=== PATIENT | male | born 1985 | race Native Hawaiian/Other Pacific Islander ===

== ENCOUNTER 2018-10-25 16:44 | Emergency (ER) | payer OTHER ==
[~2018-10-25] VITALS: Ht 190.5 cm; Wt 97.5 kg
[2018-10-25 17:09] LABS: PLATELET COUNT 335 K/uL (142-355)
[2018-10-25 18:45] VITALS: BP 129/54; TEMP 97.9
== END 2018-10-25 18:50 | disposition home or self-care (01) ==
LOC: ED 16:44
DX: M54.5 Low back pain (principal); M51.36 Other intervertebral disc degeneration, lumbar region
CPT/HCPCS: 36415; 80307; 81000; 85027; 85651; 96374; 99284; J1885; J2360